=== PATIENT | male | born 1940 | race Caucasian/White ===

== ENCOUNTER → 2016-07-06 | Outpatient (CLI) | payer MEDICARE, OTHER ==
[2016-04-26 13:05] VITALS: BP 156/71
[~2016-07-06] MED LIST: CEPH-264 PO; HYDR-971 PO
--- NOTE | 2016-07-06 17:49 | RAD ---
Indication follow-up fracture. An AP view of the left hand was obtained as well as oblique and lateral imaging targeted to the ring finger. Note is made of a previous examination 05/24/2016. There has been some healing of previously identified comminuted fracture involving the tuft of the ring finger. Some bone fragments are ununited with the distal phalanx. No definite evidence of osteomyelitis. No new injury seen
== END | disposition home or self-care (01) ==
LOC: DXRADRC 13:27
PROVIDERS: ATTEND Physician Assistant Medical
DX: S62.605D Fracture of unspecified phalanx of left ring finger, subsequent encounter for fracture with routine healing (principal); X58.XXXD Exposure to other specified factors, subsequent encounter
CPT/HCPCS: 73140

== ENCOUNTER → 2017-04-12 | Outpatient (CLI) | payer MEDICARE, OTHER ==
[2016-04-26 13:05] VITALS: BP 156/71
--- NOTE | 2017-04-12 14:59 | RAD ---
Right wrist, 2 views, 04/12/2017: History: Wrist pain No fracture or destructive bony lesion is seen. There is minimal degenerative change at the first CMC joint. There is mild widening of the scapholunate distance. Arterial calcifications are noted. IMPRESSION: 1. Widening of the scapholunate distance raising the possibility of ligamentous injury. 2. No acute bony abnormality is detected.
== END | disposition home or self-care (01) ==
LOC: PMG 14:35
PROVIDERS: ATTEND Family Medicine
DX: M19.031 Primary osteoarthritis, right wrist (principal)
CPT/HCPCS: 73100

== ENCOUNTER → 2017-12-21 | Outpatient (CLI) | payer MEDICARE, OTHER ==
[2016-04-26 13:05] VITALS: BP 156/71
== END | disposition home or self-care (01) ==
LOC: LAB 07:46
PROVIDERS: ATTEND Family Medicine
DX: Z12.5 Encounter for screening for malignant neoplasm of prostate (principal); Z85.46 Personal history of malignant neoplasm of prostate
CPT/HCPCS: G0103

== ENCOUNTER 2018-03-13 12:31 | Emergency (ER) | payer MEDICARE, OTHER ==
[~2018-03-13 12:31] MED LIST changes: +HYDR-3165 PO; -HYDR-971 PO
[2018-03-13 12:54] VITALS: BP 143/88
[2018-03-13] MEDS ORDERED: IV NORMAL SALINE 1,000ML 1,000 ML IV SCH (13:09)
[2018-03-13] MEDS ORDERED: FAMOTIDINE 20 MG/2 ML VIAL IVP ONE (13:30)
[2018-03-13] MEDS ORDERED: ONDANSETRON PF 4 MG/2 ML VIAL. IV ONE (13:30)
--- NOTE | 2018-03-13 13:56 | RAD ---
Gallbladder ultrasound, 03/13/2018: HISTORY: Abdominal pain The gallbladder is distended measuring 11 x 4.8 cm in the longitudinal plane. It contains echogenic material without posterior acoustic shadowing. The appearance is that of sludge. No definite gallstones are seen. The common hepatic duct is dilated at the lizette hepatis level measures approximately 1.3 cm. There appears to be mild intrahepatic bile duct dilatation. The distal common bile duct and and much of the pancreas was obscured by overlying bowel. No hepatic mass is evident. There is a small amount of right-sided pleural fluid. The right kidney is unremarkable. IMPRESSION: 1. Distended gallbladder containing sludge. 2. Biliary ductal dilatation. 3. Obscuration of the pancreas and distal common bile duct due to overlying bowel. CT scanning is suggested for further evaluation. 4. Small right pleural effusion. Electronically signed by: Delfino Puri MD (03/13/2018 1:53 PM) [facility]
[2018-03-13 14:08] LABS: BASO % 1 % (0-3); EOS # 0.2 x10^3/uL (0.0-0.7); EOS % 4 % (0-3); HEMATOCRIT 37.4 % (39.0-53.0); HEMOGLOBIN 12.6 g/dL (13.0-17.5); LYMPH # 0.5 x10^3/uL (1.0-4.8); LYMPH % 11 % (24-48); MEAN CORPUSCULAR HEMOGLOBIN 30 pg (25-35); MEAN CORPUSCULAR HGB CONC 34 g/dL (31-37); MEAN CORPUSCULAR VOLUME 90 fL (79-100); MONO # 0.7 x10^3/uL (0.0-1.1); MONO % 16 % (0-9); NEUT # 3.3 x10^3uL (1.8-7.7); NEUT % 69 % (31-73); PLATELET COUNT 182 x10^3/uL (140-400); RED BLOOD COUNT 4.18 x10^6/uL (4.30-5.70); RED CELL DISTRIBUTION WIDTH 13.2 % (11.5-14.5); WHITE BLOOD COUNT 4.7 x10^3/uL (4.0-11.0)
[2018-03-13 14:17] LABS: CREATININE 0.9 mg/dL (0.7-1.3); GFR 81.4; POTASSIUM 4.6 mmol/L (3.5-5.1)
[2018-03-13] MEDS ORDERED: IOHEXOL 300 MG/ML 75 ML VIAL. IV ONE (15:15)
--- NOTE | 2018-03-13 15:44 | RAD ---
PQRS Compliance Statement: One or more of the following individualized dose reduction techniques were utilized for this examination: 1. Automated exposure control 2. Adjustment of the mA and/or kV according to patient size 3. Use of iterative reconstruction technique CT ABD PELV W/ IV CONTRST ONLY Clinical Indication: Abdomen pain, Abnormal gallbladder ultrasound. Comparison: Limited Abdominal ultrasound, earlier same day. CT abdomen and pelvis without contrast, April 18, 2013. Technique: Helical CT imaging of the abdomen and pelvis is performed after 75 cc of Omnipaque 300 IV contrast. Oral contrast not given. Findings: Small right pleural effusion. There are reticular opacities in the bilateral lung bases. There are multiple subcentimeter pulmonary nodules. Cardiac size normal. There is intrahepatic duct dilation. There is extra hepatic duct dilation measuring up to 2.1 cm. There are several small hepatic cysts. The pancreatic duct is not dilated. The pancreas is homogeneous. The gallbladder is distended. The spleen and adrenal glands are normal. Mild atherosclerotic calcification of the abdominal aorta, no aneurysm. There is no hydronephrosis. Kidneys enhance symmetrically. Small left renal cyst. Stomach unremarkable. No dilated small bowel. Scattered stool throughout the colon. No colon wall thickening is seen. The appendix is normal. No abdominal adenopathy or free fluid. 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 No obvious abnormality of the urinary bladder. There are fiducials in the prostate. No obvious pelvic free fluid. Moderate left convexity lumbar scoliosis. Patchy sclerosis of the right superior pubic ramus. IMPRESSION: 1. Small right pleural effusion. There are reticular opacities in the bilateral lung bases. There are multiple subcentimeter pulmonary nodules. Considerations include atypical pneumonia versus inflammatory process versus metastatic disease. CT chest follow-up is recommended. 2. Intrahepatic and extrahepatic duct dilation. The pancreatic duct is normal. No pancreatic head mass. There is abrupt truncation of the common bile duct which may be due to stricture. 3. Hydropic gallbladder. Electronically signed by: Mikhail Barclay MD (03/13/2018 3:41 PM) [id number]
[2018-03-13] MEDS ORDERED: PIPERACILLIN/TAZOBACTAM 3.375 GM in IV NORMAL SALINE 50ML 50 ML IV ONE (16:00)
[2018-03-13] MEDS ORDERED: PIPERACILLIN/TAZOBACTAM 3.375 GM VIAL IV ONE (16:09)
[2018-03-13] MEDS ORDERED: IV NORMAL SALINE 50ML 50 ML ONE (16:09)
--- NOTE | 2018-03-13 16:49 | PHYS DOC ---
Past History Past Medical History: Other Past Surgical History: No Surgical History Alcohol Use: None Drug Use: None Adult General Chief Complaint Chief Complaint: MULTIPLE COMPLAINTS HPI HPI Patient is a 77-year-old male who presents with complaint of approximately 6 week history of abdominal discomfort when he eats. He states that there is not actually pain but he just becomes uncomfortable and becomes nauseated. He states that this occurs just about every time that he eats regardless of food type. He does indicate that he has seen his primary provider and has been scheduled to see a GI specialist but does not have an appointment for another 2 weeks and felt that he could not wait any longer for evaluation. He denies any chest pain or shortness of breath. He states that the area of greatest discomfort is in the epigastric region. He does indicate that it seems to wrap around to his back. He denies any fever. Review of Systems Review of Systems Constitutional: Denies fever or chills [] Respiratory: Denies cough or shortness of breath [] Cardiovascular: No additional information not addressed in HPI [] GI: Complains of abdominal discomfort with nausea and episodes of diarrhea [] : Denies dysuria or hematuria [] Musculoskeletal: Admits to intermittent back pain [] All other systems were reviewed and found to be within normal limits, except as documented in this note. Current Medications Current Medications Current Medications Medications (Trade) Dose Ordered Sig/Geovany Start Time Stop Time Status Last Admin Dose Admin Famotidine (Pepcid Vial) 20 mg 1X ONCE 03/13/18 13:30 03/13/18 13:31 DC 03/13/18 13:36 20 MG Iohexol (Omnipaque 300 Mg/ml) 75 ml 1X ONCE 03/13/18 15:15 03/13/18 15:16 DC 03/13/18 15:13 75 ML Ondansetron HCl (Zofran) 4 mg 1X ONCE 03/13/18 13:30 03/13/18 13:31 DC 03/13/18 13:37 4 MG Piperacillin Sod/ Tazobactam Sod (Zosyn) 3.375 gm STK-MED ONCE 03/13/18 16:09 03/13/18 16:10 DC Piperacillin Sod/ Tazobactam Sod 3.375 gm/Sodium Chloride 50 ml @ 100 mls/hr 1X ONCE 03/13/18 16:00 03/13/18 16:29 DC Sodium Chloride 50 ml @ As Directed STK-MED ONCE 03/13/18 16:09 03/13/18 16:10 DC Allergies Allergies Allergies Coded Allergies Type Severity Reaction Last Updated Verified No Known Drug Allergies 06/25/14 No Physical Exam Physical Exam Constitutional: Well developed, well nourished, no acute distress, non-toxic appearance. [] HENT: Normocephalic, atraumatic, bilateral external ears normal, oropharynx moist, no oral exudates, nose normal. [] Eyes: PERRLA, EOMI, conjunctiva normal, no discharge. [] Neck: Normal range of motion, no tenderness, supple, no stridor. [] Cardiovascular:Heart rate regular rhythm, no murmur [] Lungs & Thorax: Bilateral breath sounds clear to auscultation [] Abdomen: Bowel sounds normal, soft, no tenderness, no masses, no pulsatile masses. [] Skin: Warm, dry, no erythema, no rash. [] Back: No tenderness, no CVA tenderness. [] Extremities: No tenderness, no cyanosis, no clubbing, ROM intact, no edema. [] Neurologic: Alert and oriented X 3, normal motor function, normal sensory function, no focal deficits noted. [] Psychologic: Affect normal, judgement normal, mood normal. [] Current Patient Data Vital Signs Vital Signs Date Time Temp Pulse Resp B/P (MAP) Pulse Ox O2 Delivery O2 Flow Rate FiO2 03/13/18 12:54 97.9 54 16 98 Room Air Lab Results Laboratory Tests Test 03/13/18 13:50 White Blood Count 4.7 x10^3/uL (4.0-11.0) Red Blood Count 4.18 x10^6/uL (4.30-5.70) L Hemoglobin 12.6 g/dL (13.0-17.5) L Hematocrit 37.4 % (39.0-53.0) L Mean Corpuscular Volume 90 fL (79-100) Mean Corpuscular Hemoglobin 30 pg (25-35) Mean Corpuscular Hemoglobin Concent 34 g/dL (31-37) Red Cell Distribution Width 13.2 % (11.5-14.5) Platelet Count 182 x10^3/uL (140-400) Neutrophils (%) (Auto) 69 % (31-73) Lymphocytes (%) (Auto) 11 % (24-48) L Monocytes (%) (Auto) 16 % (0-9) H Eosinophils (%) (Auto) 4 % (0-3) H Basophils (%) (Auto) 1 % (0-3) Neutrophils # (Auto) 3.3 x10^3uL (1.8-7.7) Lymphocytes # (Auto) 0.5 x10^3/uL (1.0-4.8) L Monocytes # (Auto) 0.7 x10^3/uL (0.0-1.1) Eosinophils # (Auto) 0.2 x10^3/uL (0.0-0.7) Basophils # (Auto) 0.0 x10^3/uL (0.0-0.2) Sodium Level 137 mmol/L (136-145) Potassium Level 4.6 mmol/L (3.5-5.1) Chloride Level 103 mmol/L (98-107) Carbon Dioxide Level 26 mmol/L (21-32) Anion Gap 8 (6-14) Blood Urea Nitrogen 26 mg/dL (8-26) Creatinine 0.9 mg/dL (0.7-1.3) Estimated GFR (Cockcroft-Gault) 81.4 BUN/Creatinine Ratio 29 (6-20) H Glucose Level 92 mg/dL (70-99) Calcium Level 8.0 mg/dL (8.5-10.1) L Total Bilirubin 3.0 mg/dL (0.2-1.0) H Aspartate Amino Transferase (AST) 175 U/L (15-37) H Alanine Aminotransferase (ALT) 320 U/L (16-63) H Alkaline Phosphatase 141 U/L (46-116) H Total Protein 6.0 g/dL (6.4-8.2) L Albumin 3.0 g/dL (3.4-5.0) L Albumin/Globulin Ratio 1.0 (1.0-1.7) Lipase 258 U/L (73-393) EKG EKG [] Radiology/Procedures Radiology/Procedures [] Impressions: PROCEDURE: CT ABD PELV W/ IV CONTRST ONLY PQRS Compliance Statement: One or more of the following individualized dose reduction techniques were utilized for this examination: 1. Automated exposure control 2. Adjustment of the mA and/or kV according to patient size 3. Use of iterative reconstruction technique CT ABD PELV W/ IV CONTRST ONLY Clinical Indication: Abdomen pain, Abnormal gallbladder ultrasound. Comparison: Limited Abdominal ultrasound, earlier same day. CT abdomen and pelvis without contrast, April 18, 2013. Technique: Helical CT imaging of the abdomen and pelvis is performed after 75 cc of Omnipaque 300 IV contrast. Oral contrast not given. Findings: Small right pleural effusion. There are reticular opacities in the bilateral lung bases. There are multiple subcentimeter pulmonary nodules. Cardiac size normal. There is intrahepatic duct dilation. There is extra hepatic duct dilation measuring up to 2.1 cm. There are several small hepatic cysts. The pancreatic duct is not dilated. The pancreas is homogeneous. The gallbladder is distended. The spleen and adrenal glands are normal. Mild atherosclerotic calcification of the abdominal aorta, no aneurysm. There is no hydronephrosis. Kidneys enhance symmetrically. Small left renal cyst. Stomach unremarkable. No dilated small bowel. Scattered stool throughout the colon. No colon wall thickening is seen. The appendix is normal. No abdominal adenopathy or free fluid. 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 No obvious abnormality of the urinary bladder. There are fiducials in the prostate. No obvious pelvic free fluid. Moderate left convexity lumbar scoliosis. Patchy sclerosis of the right superior pubic ramus. IMPRESSION: 1. Small right pleural effusion. There are reticular opacities in the bilateral lung bases. There are multiple subcentimeter pulmonary nodules. Considerations include atypical pneumonia versus inflammatory process versus metastatic disease. CT chest follow-up is recommended. 2. Intrahepatic and extrahepatic duct dilation. The pancreatic duct is normal. No pancreatic head mass. There is abrupt truncation of the common bile duct which may be due to stricture. 3. Hydropic gallbladder. Electronically signed by: Mikhail Barclay MD (03/13/2018 3:41 PM) [id number] DICTATED AND SIGNED BY: MIKHAIL BARCLAY MD DATE: 03/13/18 1528 Course & Med Decision Making Course & Med Decision Making Pertinent Labs and Imaging studies reviewed. (See chart for details) Patient moved to room upon arrival was evaluated by your medical staff after which an IV was established and blood work drawn. Given patient's complaints, I felt that patient warranted evaluation of the gallbladder. Gallbladder ultrasound was thus obtained. Blood work had returned with elevated bilirubin of 3.0 as well as elevated transaminases. The gallbladder ultrasound returned with findings of dilated common bile duct as well as distended gallbladder. Recommendation for CT imaging was made. Based upon the CT findings and blood work, I consulted Dr. Patel with general surgery. He indicates that he is very concerned that this likely represents pancreatic CA. Given the findings on the CT scan, especially the nodular opacities in the lung bases, I would tend to agree. I discussed these findings as well as concerns for possibility of pancreatic cancer with patient and his . Patient was given option of being transferred to [place] for further evaluation; however, given that it is [facility], patient preferred to go home and would follow up as an outpatient. I then contacted Dr. Kemp, patient's primary care provider, and he will see patient in the office later this week and will help to coordinate close follow-up. Dragon Disclaimer Dragon Disclaimer This electronic medical record was generated, in whole or in part, using a voice recognition dictation system. Departure Departure: Impression: Primary Impression: Elevated transaminase level Additional Impressions: Elevated bilirubin Gallbladder hydrops Disposition: HOME, SELF-CARE Condition: STABLE Referrals: KEITH KEMP MD (PCP) MICHAEL HARRINGTON MD Patient Instructions: Pancreatic Cancer Scripts Ondansetron Hcl (ZOFRAN) 4 Mg Tablet 1 TAB PO Q8HRS PRN for NAUSEA/VOMITING, #15 TAB Prov: NOEMY CORCORAN Jr. DO 03/13/18 Amoxicillin/Potassium Clav (AUGMENTIN 875-125 TABLET) 1 Each Tablet 1 TAB PO BID for infection, #20 TAB Prov: NOEMY CORCORAN Jr. DO 03/13/18 Problem Qualifiers NOEMY CORCORAN Jr. DO Mar 13, 2018 16:49
[2018-03-13] MEDS ORDERED: AMOX1TAB61 PO (17:01)
[2018-03-13] MEDS ORDERED: ONDA4TAB7 PO (17:02)
--- NOTE | 2018-03-15 17:43 | EKG ---
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
== END 2018-03-13 17:24 | disposition home or self-care (01) ==
LOC: ER 12:31
DX: R74.0 Nonspecific elevation of levels of transaminase and lactic acid dehydrogenase [LDH] (principal); R19.7 Diarrhea, unspecified; J90 Pleural effusion, not elsewhere classified; E80.7 Disorder of bilirubin metabolism, unspecified; K82.1 Hydrops of gallbladder; K83.8 Other specified diseases of biliary tract; K82.8 Other specified diseases of gallbladder
CPT/HCPCS: 36415; 74177; 76705; 80053; 83690; 85025; 93005; 96361; 96374; 96375; 99284; J2405; J3490; Q9967; J7030

== ENCOUNTER 2018-03-26 21:59 | Inpatient (IN) | payer MEDICARE, OTHER ==
[~2018-03-26] VITALS: Ht 177.8 cm; Wt 75.4 kg
[~2018-03-26 21:59] MED LIST changes: +AMOX1TAB61 PO; +ONDA4TAB7 PO
[2018-03-26] MEDS ORDERED: ASPIRIN 81 MG TAB.CHEW PO ONE (22:30)
[2018-03-26 22:38] LABS: BASO # 0.1 x10^3/uL (0.0-0.2); BASO % 1 % (0-3); EOS # 0.6 x10^3/uL (0.0-0.7); EOS % 9 % (0-3); HEMOGLOBIN 11.9 g/dL (13.0-17.5); LYMPH # 0.8 x10^3/uL (1.0-4.8); LYMPH % 13 % (24-48); MEAN CORPUSCULAR HEMOGLOBIN 30 pg (25-35); MEAN CORPUSCULAR HGB CONC 33 g/dL (31-37); MEAN CORPUSCULAR VOLUME 90 fL (79-100); MONO # 0.9 x10^3/uL (0.0-1.1); MONO % 15 % (0-9); NEUT # 4.1 x10^3uL (1.8-7.7); NEUT % 63 % (31-73); PLATELET COUNT 234 x10^3/uL (140-400); RED BLOOD COUNT 4.02 x10^6/uL (4.30-5.70); RED CELL DISTRIBUTION WIDTH 13.7 % (11.5-14.5); WHITE BLOOD COUNT 6.4 x10^3/uL (4.0-11.0)
[2018-03-26 22:48] LABS: CALCIUM 8.9 mg/dL (8.5-10.1); GFR 72.1; POTASSIUM 4.7 mmol/L (3.5-5.1)
--- NOTE | 2018-03-26 23:11 | RAD ---
EXAM: Chest, single view. HISTORY: Chest pain COMPARISON: 05/16/2015 FINDINGS: A frontal view of the chest is obtained. There is diffuse coarse interstitial infiltrate. There is a small right pleural effusion. The heart is normal in size. There is no pneumothorax. IMPRESSION: Diffuse coarse interstitial infiltrate and small right pleural effusion. Follow-up to confirm resolution. Electronically signed by: Sherrie Giron MD (03/26/2018 11:07 PM) [facility]
[2018-03-26] MEDS ORDERED: NITROGLYCERIN SUBLINGUAL 0.4 MG BOTTLE OF 25. SL PRN (23:15)
[2018-03-26] MEDS ORDERED: ACETAMINOPHEN 325 MG TABLET PO PRN (23:15)
[2018-03-26] MEDS ORDERED: ONDANSETRON PF 4 MG/2 ML VIAL. IV PRN (23:15)
[2018-03-26 23:21] LABS: ALBUMIN 2.6 g/dL (3.4-5.0); DIRECT BILIRUBIN 1.5 mg/dL (0.0-0.2); TOTAL BILIRUBIN 1.7 mg/dL (0.2-1.0); TOTAL PROTEIN 5.9 g/dL (6.4-8.2)
[2018-03-26] MEDS ORDERED: FUROSEMIDE 40 MG/4 ML VIAL IVP ONE (23:30)
[2018-03-26] MEDS ORDERED: ISOSORBIDE MONONITRATE ER 30 MG TAB.ER.24H PO ONE (23:30)
--- NOTE | 2018-03-26 23:50 | PHYS DOC ---
Adult General Chief Complaint Chief Complaint swollen ankles HPI HPI This is a very pleasant 77 years old male who presented to the emergency department with worsening shortness of breath over the past week associated with edema and lower extremities and intermittent chest pain, also complaining of epigastric tenderness Patient was seen and evaluated recently in the hospital for obstructive intrahepatic and extrahepatic biliary ducts status post ERCP with stent placement. Review of Systems Review of Systems Constitutional: Denies fever or chills [] Eyes: Denies change in visual acuity, redness, or eye pain [] HENT: Denies nasal congestion or sore throat [] Respiratory: _+ cough or shortness of breath [] Cardiovascular: No additional information not addressed in HPI [] GI: Denies abdominal pain, nausea, vomiting, bloody stools or diarrhea [] : Denies dysuria or hematuria [] Musculoskeletal: Denies back pain or joint pain [] Integument: Denies rash or skin lesions [] Neurologic: Denies headache, focal weakness or sensory changes [] Endocrine: Denies polyuria or polydipsia [] All other systems were reviewed and found to be within normal limits, except as documented in this note. Current Medications Current Medications Current Medications Medications (Trade) Dose Ordered Sig/Geovany Start Time Stop Time Status Last Admin Dose Admin Acetaminophen (Tylenol) 650 mg PRN Q4HRS PRN 03/26/18 23:15 03/27/18 23:14 Aspirin (Children'S Aspirin) 324 mg 1X ONCE 03/26/18 22:30 03/26/18 22:31 DC 03/26/18 22:29 324 MG Furosemide (Lasix) 40 mg [id number] 03/27/18 09:00 Isosorbide Mononitrate (Imdur) 30 mg 1X ONCE 03/26/18 23:30 03/26/18 23:31 DC Nitroglycerin (Nitrostat) 0.4 mg PRN Q5MIN PRN 03/26/18 23:15 03/27/18 23:14 Ondansetron HCl (Zofran) 4 mg PRN Q4HRS PRN 03/26/18 23:15 03/27/18 23:14 Allergies Allergies Allergies Coded Allergies Type Severity Reaction Last Updated Verified No Known Drug Allergies 06/25/14 No Physical Exam Physical Exam Constitutional: Well developed, well nourished, no acute distress, non-toxic appearance. [] HENT: Normocephalic, atraumatic, bilateral external ears normal, oropharynx moist, no oral exudates, nose normal. [] Eyes: PERRLA, EOMI, conjunctiva normal, no discharge. [] Neck: Normal range of motion, no tenderness, supple, no stridor. [] Cardiovascular:Heart rate regular rhythm, no murmur [] Lungs & Thorax: Bilateral breath sounds clear to auscultation [] Abdomen: Bowel sounds normal, soft, no tenderness, no masses, no pulsatile masses. [] Skin: Warm, dry, no erythema, no rash. [] Back: No tenderness, no CVA tenderness. [] Extremities: No tenderness, no cyanosis, no clubbing, ROM intact, + 2 edema. [] Neurologic: Alert and oriented X 3, normal motor function, normal sensory function, no focal deficits noted. [] Psychologic: Affect normal, judgement normal, mood normal. [] Current Patient Data Vital Signs Vital Signs Date Time Temp Pulse Resp B/P (MAP) Pulse Ox O2 Delivery O2 Flow Rate FiO2 03/26/18 22:00 98.6 61 16 95 Room Air Lab Results Laboratory Tests Test 03/26/18 22:19 White Blood Count 6.4 x10^3/uL (4.0-11.0) Red Blood Count 4.02 x10^6/uL (4.30-5.70) L Hemoglobin 11.9 g/dL (13.0-17.5) L Hematocrit 36.0 % (39.0-53.0) L Mean Corpuscular Volume 90 fL (79-100) Mean Corpuscular Hemoglobin 30 pg (25-35) Mean Corpuscular Hemoglobin Concent 33 g/dL (31-37) Red Cell Distribution Width 13.7 % (11.5-14.5) Platelet Count 234 x10^3/uL (140-400) Neutrophils (%) (Auto) 63 % (31-73) Lymphocytes (%) (Auto) 13 % (24-48) L Monocytes (%) (Auto) 15 % (0-9) H Eosinophils (%) (Auto) 9 % (0-3) H Basophils (%) (Auto) 1 % (0-3) Neutrophils # (Auto) 4.1 x10^3uL (1.8-7.7) Lymphocytes # (Auto) 0.8 x10^3/uL (1.0-4.8) L Monocytes # (Auto) 0.9 x10^3/uL (0.0-1.1) Eosinophils # (Auto) 0.6 x10^3/uL (0.0-0.7) Basophils # (Auto) 0.1 x10^3/uL (0.0-0.2) D-Dimer (Jaida) 2.21 mg/L (0.00-0.50) H Sodium Level 137 mmol/L (136-145) Potassium Level 4.7 mmol/L (3.5-5.1) Chloride Level 100 mmol/L (98-107) Carbon Dioxide Level 32 mmol/L (21-32) Anion Gap 5 (6-14) L Blood Urea Nitrogen 33 mg/dL (8-26) H Creatinine 1.0 mg/dL (0.7-1.3) Estimated GFR (Cockcroft-Gault) 72.1 Glucose Level 90 mg/dL (70-99) Calcium Level 8.9 mg/dL (8.5-10.1) Total Bilirubin 1.7 mg/dL (0.2-1.0) H Direct Bilirubin 1.5 mg/dL (0.0-0.2) H Aspartate Amino Transferase (AST) 80 U/L (15-37) H Alanine Aminotransferase (ALT) 189 U/L (16-63) H Alkaline Phosphatase 490 U/L (46-116) H Troponin I Quantitative 0.017 ng/mL (0-0.055) ZH-Mub-X-Type Natriuretic Peptide 222 pg/mL (0-449) Total Protein 5.9 g/dL (6.4-8.2) L Albumin 2.6 g/dL (3.4-5.0) L EKG EKG [] Radiology/Procedures Radiology/Procedures [] Course & Med Decision Making Course & Med Decision Making Pertinent Labs and Imaging studies reviewed. (See chart for details) [] Final Impression Final Impression [] Problems: (1) Fluid overload Qualifiers: Qualified Codes: E87.70 - Fluid overload, unspecified Dragon Disclaimer Dragon Disclaimer This electronic medical record was generated, in whole or in part, using a voice recognition dictation system. ASHOK HDZ MD Mar 26, 2018 23:49
[2018-03-27] MEDS ORDERED: CONTRAST GIVEN MC PRN (00:15)
[2018-03-27] MEDS ORDERED: IOHEXOL 300 MG/ML 50 ML VIAL. IV ONE ×2 (00:30)
--- NOTE | 2018-03-27 01:00 | RAD ---
CT arteriogram of the chest. HISTORY: Chest pain, elevated d-dimer CT arteriogram of the chest was done using 100 mL Omnipaque 300 contrast. There is a micronodule pattern or miliary in the lungs. Viral pneumonia can have this pattern or TB or other atypical inflammatory conditions. There is peribronchial thickening. There are also more confluent areas of infiltrate. There is a small left pleural effusion with a moderate to large right pleural effusion. This study is negative for evidence of a pulmonary embolus. There are cysts in the liver. There is gas in the intrahepatic bile ducts with a biliary stent. IMPRESSION: 1. Bilateral effusions larger on the right. 2. Micronodular or miliary pattern in the lungs without other more confluent areas of infiltrate suggesting an inflammatory process or atypical pneumonia or TB. Electronically signed by: Abhi Freedman MD (03/27/2018 12:56 AM) [facility]
[2018-03-27 01:10] VITALS: BP 143/68
[2018-03-27] MEDS ORDERED: TAMS0.4C2 PO (02:43)
[2018-03-27] MEDS ORDERED: GABA600T2 PO (02:46)
[2018-03-27] MEDS ORDERED: GABA-585 PO (02:46)
[2018-03-27] MEDS ORDERED: MELO15TA23 PO (02:48)
--- NOTE | 2018-03-27 03:41 | EKG ---
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
[2018-03-27 05:44] VITALS: BP 103/54
[2018-03-27 06:27] LABS: BASO # 0.1 x10^3/uL (0.0-0.2); BASO % 1 % (0-3); EOS # 0.5 x10^3/uL (0.0-0.7); EOS % 7 % (0-3); HEMATOCRIT 34.2 % (39.0-53.0); HEMOGLOBIN 11.4 g/dL (13.0-17.5); LYMPH # 0.5 x10^3/uL (1.0-4.8); LYMPH % 7 % (24-48); MEAN CORPUSCULAR HEMOGLOBIN 30 pg (25-35); MEAN CORPUSCULAR HGB CONC 33 g/dL (31-37); MEAN CORPUSCULAR VOLUME 90 fL (79-100); MONO # 0.9 x10^3/uL (0.0-1.1); MONO % 13 % (0-9); NEUT % 72 % (31-73); PLATELET COUNT 219 x10^3/uL (140-400); RED BLOOD COUNT 3.81 x10^6/uL (4.30-5.70); RED CELL DISTRIBUTION WIDTH 13.8 % (11.5-14.5)
[2018-03-27 06:40] LABS: ALBUMIN 2.6 g/dL (3.4-5.0); ALBUMIN/GLOBULIN RATIO 0.8 (1.0-1.7); CALCIUM 8.4 mg/dL (8.5-10.1); GFR 72.1; POTASSIUM 4.4 mmol/L (3.5-5.1); TOTAL BILIRUBIN 1.8 mg/dL (0.2-1.0); TOTAL PROTEIN 5.7 g/dL (6.4-8.2)
[2018-03-27] MEDS ORDERED: FUROSEMIDE 40 MG/4 ML VIAL IVP SCH (09:00)
[2018-03-27] MEDS ORDERED: L.AC1CAP6 PO (09:24)
[2018-03-27 10:02] VITALS: BP 99/45
[2018-03-27 10:04] VITALS: BP 116/42
[2018-03-27 10:05] VITALS: BP 72/32
[2018-03-27 11:01] VITALS: BP 112/52
--- NOTE | 2018-03-27 14:57 | SSS ---
ADMIT DATE: 03/27/2018 HISTORY OF PRESENT ILLNESS: The patient is a 77-year-old male patient, who came to the Emergency Room complaining of shortness of breath over the past week associated with edema in lower extremities, intermittent chest pain, also complaining of epigastric tenderness. He was evaluated in the Emergency Room and has had a chest x-ray, which showed a diffuse coarse interstitial infiltrate and small right pleural effusion. Follow up to confirm resolution. There is no pneumothorax. The heart size is normal. CT angio of the chest showed that there is micro nodule that is miliary in the lungs. Viral pneumonia can have this pattern with TP or other atypical inflammatory condition. There is right bronchial thickening. There are also some confluent areas of infiltrate. There is a small left pleural effusion with moderate to large right-sided pleural effusion. This study is negative for evidence of pulmonary embolus. There are cysts in the liver. There is gas in the intrahepatic bile duct with biliary stent and the impression is that the patient has bilateral effusion, larger on the right, micronodular for miliary pattern in the lungs without other more confluent areas of infiltrate suggesting an inflammatory process or atypical pneumonia or tuberculosis. He was admitted actually under diagnosis of congestive heart failure, although I am not really sure that is the case here as in fact his beta natriuretic peptide was only 222. He continued to have obstructive jaundice pattern in his liver enzymes. He has no leukocytosis and although D-dimer is high at 2.21. He was treated with IV Lasix and was admitted for further evaluation. 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 PAST SURGICAL HISTORY: Significant for bilateral hip replacement, back surgery, left ear surgery, bilateral inguinal hernia, ERCP with stent deployment. ALLERGIES: He has no known drug allergies. MEDICATIONS: He is currently on following medications: He is on tamsulosin 0.4 mg twice a day, meloxicam 15 mg once a day, gabapentin 200 mg 3 times a day, ondansetron 4 mg every 8 hours and lactobacillus probiotic 3 times a day. FAMILY HISTORY: One older brother at age of 83 because of prostate cancer. One sister at age of 81 because of Alzheimer's disease. His father at the age of 95 because of kidney cancer and his mother also at the age of 95. SOCIAL HISTORY: He is , has 3 sons. He is an ex-smoker, quit in 1972. Does not drink alcohol. Retired from [employer]. REVIEW OF SYSTEMS: As per history of present illness. PHYSICAL EXAMINATION GENERAL: When I examined him today, he looked well and was clearly in no apparent respiratory distress, slightly pale, but no jaundice, cyanosis, or thyromegaly. No jugular venous distension. Mild bilateral lower limb edema. VITAL SIGNS: His heart rate was 63, blood pressure 112/52, temperature was 98.5, respiratory rate 20, and oxygen saturation was 92% on room air. HEAD, EYES, EARS, NOSE AND THROAT: Showed normocephalic, atraumatic. NECK: Supple. HEART: Showed normal first and second heart sounds. No gallop, rub or murmur. CHEST: Clear to auscultation. No crepitation or rhonchi. ABDOMEN: Distended, soft, nontender. NEUROLOGIC: He was awake, alert, responding appropriately. All cranial nerves intact. EXTREMITIES: He moves extremities without difficulty. LABORATORY DATA: As of this morning showed a white cell count of 7000, hemoglobin 11, hematocrit 34, MCV 90 and platelet count 219,000. His chemistry showed a serum sodium 138, potassium 4, chloride 100, bicarbonate 30, anion gap of 8, BUN 30, creatinine 1, estimated GFR was 72 mL per minute. His glucose was 100, calcium was 8.4. Total bilirubin 1.8. AST, ALT, alkaline phosphatase are all elevated. He has 2 sets of cardiac enzymes showed that troponin to be less than 0.017. Total protein was 5.7, albumin 2.6. Beta natriuretic peptide was only 222. D-dimer was 2.21 mg/dL. IMPRESSION: In summary, this is a 77-year-old male patient, who was admitted with worsening shortness of breath associated with chest pain, intermittent epigastric tenderness. His CT angio of the chest was negative for pulmonary embolism; however, he has bilateral pleural effusion, larger on the right. He has micronodular miliary patterns in the lungs without other more confluent areas of infiltrate suggesting an inflammatory process or atypical pneumonia or tuberculosis. PLAN: My plan is to transfer him back to [facility]. I spoke with Dr. Dutton about him. He had had a biopsy done from his biliary duct that is not available yet. My plan is to consult the interventional radiologist to drain the right-side pleural effusion and send the fluid for cytology as well as other cell count differential as well as protein and glucose as well as pH and await for the result of the biopsy done by ERCP and if need be we can from there discharge him to have the endoscopic ultrasound to be done as an outpatient. The pleural fluid might prove that there are malignant cells and that will opt clench to diagnoses. MAY MORGAN MD DR: KENDY/long JOB#: [id number] / [id number]
== END 2018-03-27 15:45 | disposition short-term general hospital (02) | DRG 194 ==
LOC: ER 21:59 → 1 SOUTH 03-27 00:40
PROVIDERS: ADMIT Internal Medicine; ATTEND Internal Medicine
DX: J18.9 Pneumonia, unspecified organism (principal); A15.9 Respiratory tuberculosis unspecified; H81.03 Meniere's disease, bilateral; K76.89 Other specified diseases of liver; N40.0 Benign prostatic hyperplasia without lower urinary tract symptoms; Z96.643 Presence of artificial hip joint, bilateral; Z80.42 Family history of malignant neoplasm of prostate; Z80.51 Family history of malignant neoplasm of kidney; Z82.0 Family history of epilepsy and other diseases of the nervous system; Z87.891 Personal history of nicotine dependence
CPT/HCPCS: 36415; 71045; 71275; 80048; 80053; 80076; 83880; 84484; 85025; 85379; 93005; 96374; J1940; Q9967; 99285-25